=== PATIENT | female | born 1980 | race Caucasian/White ===

== ENCOUNTER 2022-08-05 14:12 | Emergency (ER) | payer OTHER ==
[~2022-08-05] VITALS: Ht 180.3 cm; Wt 96.2 kg
--- NOTE | 2022-08-05 14:30 | NUR ---
c/o cough, runnny nose, body ache, and sore throat, worst today. SHE HAS A PACEMAKER SINCE 1998HAS ALLERGY WITH PENICILLIN AND MYOCIN FAMILY. SHE WAS GIVEN DOXYCYCLINE AND PREDNISONE LAST MONTH FOR STREP THROAT. AOX4, AMBULATORY.
--- NOTE | 2022-08-05 14:35 | NUR ---
dr anglin at bedside for eval.
--- NOTE | 2022-08-05 14:50 | NUR ---
covid swab,strep, AND INFLUENZA SWAB DONE , SENT TO LAB
[2022-08-05] MEDS ORDERED: dexaMETHasone SOD PHOSPHATE 10 MG/ML VIAL IM ONE (15:00)
[2022-08-05] MEDS ORDERED: ACETAMINOPHEN 325 MG TABLET PO ONE (15:00)
[2022-08-05] MEDS ORDERED: dexaMETHasone SOD PHOSPHATE 10 MG/ML VIAL ONE (15:36)
[2022-08-05] MEDS ORDERED: ACETAMINOPHEN ES 500 MG TABLET ONE (15:36)
[2022-08-05] MEDS ORDERED: TYL2T PO (15:50)
[2022-08-05] MEDS ORDERED: IBUP-1953 PO (15:50)
[2022-08-05] MEDS ORDERED: BENZ1LOZ58 PO (15:53)
[2022-08-05 17:17] VITALS: BP 110/70
== END 2022-08-05 17:18 | disposition home or self-care (01) ==
LOC: ER 14:25
DX: B34.9 Viral infection, unspecified (principal); Z88.0 Allergy status to penicillin; Z88.8 Allergy status to other drugs, medicaments and biological substances; Z20.822 Contact with and (suspected) exposure to COVID-19
CPT/HCPCS: 99284; 71045; 87426; 96372; 87804 ×2; 87880; J1100; C9803; 86403-TC

== ENCOUNTER 2022-08-07 17:17 | Emergency (ER) | payer OTHER ==
[~2022-08-07] VITALS: Ht 177.8 cm; Wt 96.2 kg
[~2022-08-07 17:17] MED LIST: BENZ1LOZ58 PO; IBUP-1953 PO; TYL2T PO
--- NOTE | 2022-08-07 17:35 | NUR ---
BIBS C/O COUGH, CONGESTION AND LOSS OF SMELL X 3 DAYS. TESTED +COVID HOME KIT. AMBULATORY, PLACED IN BED, AAOX4, BREATHING EVEN AND UNLABORED SATURATING AT 98%RA.
--- NOTE | 2022-08-07 17:57 | NUR ---
SWAB FOR COVID19 SENT TO LAB
[2022-08-07] MEDS ORDERED: IBUP-1955 PO (20:33)
[2022-08-07] MEDS ORDERED: PROM118S5 PO (20:33)
--- NOTE | 2022-08-07 20:42 | NUR ---
Patient discharged to home in stable condition. Written and verbal after care instructions given. Patient verbalizes understanding of instruction.
[2022-08-07 20:44] VITALS: BP 106/51
== END 2022-08-07 20:44 | disposition home or self-care (01) ==
LOC: ER 17:18
DX: U07.1 COVID-19 (principal); Z88.0 Allergy status to penicillin; Z88.8 Allergy status to other drugs, medicaments and biological substances; Z60.2 Problems related to living alone; Z79.899 Other long term (current) drug therapy
CPT/HCPCS: 99284; 71045; 87426; C9803